=== PATIENT | female | born 1980 | race Caucasian/White ===

== ENCOUNTER 2019-05-13 13:12 | Emergency (ER) | payer BC ==
[2019-05-13] MEDS ORDERED: Ipratropium 0.5MG/2.5ML NEB* 0.5 MG/2.5 ML NEB.SOLN INH ONE ×2 (13:16→14:03)
[2019-05-13] MEDS ORDERED: Albuterol 2.5 MG/3 ML NEB.SOL* (0.083%) INH ONE ×4 (13:16→14:39)
[2019-05-13] MEDS ORDERED: predniSONE TAB* 20 MG PO ONE (13:19)
--- NOTE | 2019-05-13 14:05 | UC ---
Respiratory Complaint HPI - HPI Summary HPI Summary: The patient is a 39-year-old female with a long history of asthma. She also has an aspirin allergy as well as nasal polyposis. She has been feeling ill for the past 3 days with myalgias and today is feverish. For the past 2 weeks her sinuses have been worse than normal with increased sinus pressure and pain as well as postnasal drip. She is due to have ENT surgery to remove polyps in June of this year. About a year ago she was admitted for pneumonia and severe bronchospasm. She arrives here soon after the acute onset of chest tightness and wheezing. She had no relief with her rescue inhaler. - History of Current Complaint Chief Complaint: UCRespiratory Stated Complaint: ASTHMA ATTACK Time Seen by Provider: 05/13/19 13:16 Hx Obtained From: Patient Onset/Duration: Sudden Onset - Wheezing and increased WOB, Gradual Onset - worsening sinus pressure and pain x 2 weeks Timing: Constant Severity Initially: Mild Severity Currently: Severe Pain Intensity: 4 Pain Scale Used: 0-10 Numeric Character: Cough: Nonproductive Aggravating Factors: Nothing Alleviating Factors: Nothing Associated Signs And Symptoms: Positive: Dyspnea, Fever, Chills, Wheezing, URI, Nasal Congestion, Sinus Discomfort. Negative: Pleuritic Chest Pain, Hemoptysis , Dizziness, Calf Pain, Calf Swelling Related History: Similar Episode/Dx as: - sinusitis/asthma - Allergies/Home Medications Allergies/Adverse Reactions: Allergies Allergy/AdvReac Type Severity Reaction Status Date / Time aspirin Allergy Wheezing Verified 05/13/19 13:26 ibuprofen Allergy Wheezing Verified 05/13/19 13:26 Home Medications: Home Medications Albuterol HFA INHALER* [Ventolin HFA Inhaler*] 1 puff INH Q4H PRN 05/13/19 [ History Confirmed 05/13/19] Budesonide/Formote 160/4.5(NF) [Symbicort 160/4.5 (NF)] 1 puff INH BID 05/13/19 [History Confirmed 05/13/19] Montelukast Sodium TAB* [Singulair TAB*] 10 mg PO DAILY 05/13/19 [History Confirmed 05/13/19] Tiotropium CAP.INH (NF) [Spiriva CAP.INH*] 1 cap.inh INH DAILY 05/13/19 [ History Confirmed 05/13/19] PMH/Surg Hx/FS Hx/Imm Hx Previously Healthy: Yes Respiratory History: Asthma, Bronchitis, Pneumonia - Surgical History Surgical History: Yes Surgery Procedure, Year, and Place: ortho surgeries - Family History Known Family History: Positive: Hypertension - Social History Alcohol Use: None Substance Use Type: None Smoking Status (MU): Never Smoked Tobacco Review of Systems All Other Systems Reviewed And Are Negative: Yes Constitutional: Positive: Fever, Fatigue Skin: Positive: Negative Eyes: Positive: Negative ENT: Positive: Nasal Discharge, Sinus Congestion, Sinus Pain/Tenderness Respiratory: Positive: Shortness Of Breath, Cough Cardiovascular: Positive: Negative Gastrointestinal: Positive: Negative Genitourinary: Positive: Negative Motor: Positive: Negative Neurovascular: Positive: Negative Musculoskeletal: Positive: Negative Neurological: Positive: Negative Psychological: Positive: Negative Physical Exam Triage Information Reviewed: Yes Appearance: Ill-Appearing - increased WOB Vital Signs: Initial Vital Signs Temp 100.4 F 05/13/19 13:21 Pulse 115 05/13/19 13:21 Resp 26 05/13/19 13:21 BP 00/00 05/13/19 13:21 Pulse Ox 99 05/13/19 13:21 BP 112/58 Vital Signs Reviewed: Yes Eyes: Positive: Conjunctiva Clear ENT: Positive: Hearing grossly normal, Nasal congestion, Sinus tenderness Neck: Positive: Supple, Nontender, No Lymphadenopathy Respiratory: Positive: Respiratory distress, Accessory muscle use, Wheezing Cardiovascular: Positive: RRR, Tachycardia Musculoskeletal: Positive: ROM Intact, No Edema Neurological: Positive: Alert Psychological Exam: Normal Skin Exam: Normal Diagnostics - Radiology No standard instances Radiology Interpretation Completed By: Radiologist Summary of Radiographic Findings: NAD Re-Evaluation - Re-Evaluation First Eval Re-Evaluation Time: 14:04 Change: Improved - after second neb slight improvement, still very tight with prolonged expiration phase Second Eval Change: Improved - still wheezing better air movement Respiratory Course/Dx - Course Course Of Treatment: D/W Dr. Pennington TO ER via [place] - Differential Dx/Diagnosis Provider Diagnosis: Status asthmaticus Discharge ED - Sign-Out/Discharge Documenting (check all that apply): Patient Departure All imaging exams completed and their final reports reviewed: Yes - Discharge Plan Condition: Fair Disposition: TRANS HIGHER LV OF CARE FAC Referrals: No Primary Care Phys,NOPCP [Primary Care Provider] - - Billing Disposition and Condition Condition: FAIR Disposition: Trans Higher Lvl of Care Fac
[2019-05-13 14:18] VITALS: BP 112/58
== END 2019-05-13 14:58 | disposition short-term general hospital (02) ==
LOC: UCEAST 13:12
DX: J45.902 Unspecified asthma with status asthmaticus (principal); M79.10 Myalgia, unspecified site; J33.8 Other polyp of sinus; Z87.01 Personal history of pneumonia (recurrent); Z88.8 Allergy status to other drugs, medicaments and biological substances
CPT/HCPCS: 71046; 99204; G0463; J7512

== ENCOUNTER 2019-05-13 15:10 | Emergency (ER) | payer BC ==
--- NOTE | 2019-05-13 15:19 | ED ---
Shortness of Breath - HPI Summary HPI Summary: This patient is a 39 year old F BIBA via EMS to ED from with a chief complaint of shortness of breath since earlier today. Patient has a history of asthma and nasal polyps, for which she is supposed to have surgery this June. She thinks she is getting a sinus infection so she took Tylenol, but she states that sometimes makes her asthma worse. Patient received Duoneb x2, Albuterol x2, and Prednisone 60mg PO, which improved her breathing. Patient reports she feels jittery now from the treatments. The patient rates the pain 0/ 10 in severity. Symptoms aggravated by nothing. Symptoms alleviated by EMS tx. Patient reports cough. Patient denies fever. - History of Current Complaint Chief Complaint: EDShortnessOfBreath Hx Obtained From: Patient, EMS Onset/Duration: Gradual Onset, Lasting Days, Still Present, Worse Since Timing: Constant Current Severity: Mild Dyspnea At: Rest Aggravating Factors: Nothing Alleviating Factors: EMS Tx Associated Signs & Symptoms: Negative - Fever, Cough (Nonproductive) - Allergy/Home Medications Allergies/Adverse Reactions: Allergies Allergy/AdvReac Type Severity Reaction Status Date / Time aspirin Allergy Wheezing Verified 05/13/19 13:26 ibuprofen Allergy Wheezing Verified 05/13/19 13:26 PMH/Surg Hx/FS Hx/Imm Hx Respiratory History: Reports: Hx Asthma, Other Respiratory Problems/Disorders - Nasal polyps Sensory History: Denies: Hx Legally Blind, Hx Deafness Opthamlomology History: Denies: Hx Legally Blind EENT History: Denies: Hx Deafness - Surgical History Surgery Procedure, Year, and Place: ortho surgeries Infectious Disease History: No Infectious Disease History: Denies: Traveled Outside the [place] in Last 30 Days - Family History Known Family History: Positive: Hypertension - Social History Alcohol Use: None Hx Substance Use: No Substance Use Type: Reports: None Hx Tobacco Use: No Smoking Status (MU): Never Smoked Tobacco Review of Systems Negative: Fever Positive: Shortness Of Breath, Cough All Other Systems Reviewed And Are Negative: Yes Physical Exam - Summary Physical Exam Summary: Appearance: The patient is well-nourished in no acute distress and in no acute pain. Skin: The skin is warm and dry, and skin color reflects adequate perfusion. HEENT: The head is normocephalic and atraumatic. The pupils are equal and reactive. The conjunctivae are clear and without drainage. Nares are patent and without drainage. Mouth reveals moist mucous membranes, and the throat is without erythema and exudate. The external ears are intact. The ear canals are patent and without drainage. The tympanic membranes are intact. Neck: The neck is supple with full range of motion and non-tender. There are no carotid bruits. There is no neck vein distension. Respiratory: Expiratory wheezes. Cardiovascular: Tachycardic. Abdomen: The abdomen is soft and non-tender. There are normal bowel sounds heard in all four quadrants and there is no organomegaly palpated. Musculoskeletal: There is no back tenderness noted. Extremities are non-tender with full range of motion. There is good capillary refill. There is no peripheral edema or calf tenderness elicited. Neurological: Patient is alert and oriented to person, place and time. The patient has symmetrical motor strength in all four extremities. Cranial nerves are grossly intact. Deep tendon reflexes are symmetrical and equal in all four extremities. Psychiatric: The patient has an appropriate affect and does not exhibit any anxiety or depression. Triage Information Reviewed: Yes Vital Signs On Initial Exam: Initial Vitals Temp Pulse Resp BP Pulse Ox 99 F 121 20 130/66 100 05/13/19 15:12 05/13/19 15:12 05/13/19 15:12 05/13/19 15:12 05/13/19 15:12 Vital Signs Reviewed: Yes Procedures - Sedation Patient Received Moderate/Deep Sedation with Procedure: No Diagnostics - Vital Signs Vital Signs Temp Pulse Resp BP Pulse Ox 05/13/19 15:12 99 F 121 20 130/66 100 - Laboratory Lab Statement: Any lab studies that have been ordered have been reviewed, and results considered in the medical decision making process. Re-Evaluation - Re-Evaluation First Eval Re-Evaluation Time: 18:13 Change: Improved Comment: Patient reports feeling better. I will have the patient ambulate around the department to see if her SpO2 drops. Second Eval Re-Evaluation Time: 18:22 Comment: Patient ambulated around the department without difficulty, SpO2 did not drop below 94%. Course/Dx - Course Course Of Treatment: Ms. Ruano presented after having received intense treatment for her asthma exacerbation had I [facility]. She still had a little bit of a wheeze, was tachycardic and very shaky on arrival. She was allowed to rest for a few hours and reevaluated. She subjectively felt much improved and had only borderline tachycardia at that point. Her lungs were clear. I recommended a short steroid burst and follow-up with her asthma specialist. - Diagnoses Provider Diagnoses: Asthma exacerbation Discharge ED - Sign-Out/Discharge Documenting (check all that apply): Patient Departure - Discharge - Discharge Plan Condition: Stable Disposition: HOME Prescriptions: predniSONE [Prednisone 20 MG TAB] 20 mg PO BID #8 tablet Patient Education Materials: Asthma (ED) Referrals: Care [facility] [Outside] - 3 Days Gunjan Sanchez MD [Medical Doctor] - 3 Days Additional Instructions: Follow up with your primary care physician within 2-3 days. PLEASE RETURN TO THE ER FOR WORSENING OR CHANGING SYMPTOMS. - Billing Disposition and Condition Condition: STABLE Disposition: Home - Attestation Statements Document Initiated by Bianca: Yes Documenting Scribe: Alfred Lentz Provider For Whom Bianca is Documenting (Include Credential): Alex Seaman MD Scribe Attestation: I, Alfred Lentz, scribed for Alex Seaman MD on 05/13/19 at 2049. Scribe Documentation Reviewed: Yes Provider Attestation: The documentation as recorded by the Alfred rooney accurately reflects the service I personally performed and the decisions made by me, Alex Seaman MD Status of Scribe Document: Viewed
[2019-05-13 18:37] VITALS: BP 98/50
== END 2019-05-13 18:37 | disposition home or self-care (01) ==
LOC: ED 15:10
DX: J45.901 Unspecified asthma with (acute) exacerbation (principal); Z88.6 Allergy status to analgesic agent; Z79.899 Other long term (current) drug therapy
CPT/HCPCS: 99282

== ENCOUNTER 2019-05-17 18:41 | Emergency (ER) | payer BC ==
--- NOTE | 2019-05-17 20:14 | ED ---
Upper Extremity Pain - HPI Summary HPI Summary: 39-year-old female presents with abnormal feeling in the vein in her left arm. She had an IV placed couple days ago started feeling this tightness in her vein. Since then tightness has traveled down her arm. She states it just feels very stiff. Has full range motion arm. No rash. No fevers. No chest pain or shortness breath. She has never had this before. has history of asthma. - History of Current Complaint Chief Complaint: EDExtremityUpper Stated Complaint: IV SITE PROBLEM LT ARM PER PT Time Seen by Provider: 05/17/19 19:01 - Allergies/Home Medications Allergies/Adverse Reactions: Allergies Allergy/AdvReac Type Severity Reaction Status Date / Time aspirin Allergy Wheezing Verified 05/17/19 20:40 ibuprofen Allergy Wheezing Verified 05/17/19 20:40 PMH/Surg Hx/FS Hx/Imm Hx Endocrine/Hematology History: Denies: Hx Anticoagulant Therapy Respiratory History: Reports: Hx Asthma, Other Respiratory Problems/Disorders - Nasal polyps Sensory History: Denies: Hx Legally Blind, Hx Deafness Opthamlomology History: Denies: Hx Legally Blind - Surgical History Surgery Procedure, Year, and Place: ortho surgeries Infectious Disease History: No Infectious Disease History: Denies: Traveled Outside the [place] in Last 30 Days - Family History Known Family History: Positive: Hypertension - Social History Alcohol Use: None Hx Substance Use: No Substance Use Type: Reports: None Hx Tobacco Use: No Smoking Status (MU): Never Smoked Tobacco Review of Systems Negative: Fever Negative: Chest Pain Negative: Shortness Of Breath Positive: Other - vein pain in left arm All Other Systems Reviewed And Are Negative: Yes Physical Exam Triage Information Reviewed: Yes Vital Signs On Initial Exam: Initial Vitals Temp Pulse Resp BP Pulse Ox 97.9 F 89 16 144/92 100 05/17/19 18:52 05/17/19 18:52 05/17/19 18:52 05/17/19 18:52 05/17/19 18:52 Vital Signs Reviewed: Yes Appearance: Positive: Well-Appearing Skin: Positive: Warm, Dry Head/Face: Positive: Normal Head/Face Inspection Eyes: Positive: Normal ENT: Positive: Pharynx normal Respiratory/Lung Sounds: Positive: Clear to Auscultation, Breath Sounds Present Cardiovascular: Positive: Normal, RRR Musculoskeletal: Positive: Strength/ROM Intact - left arm, Other - vein feels inflammed on exam, good pulses Neurological: Positive: Normal Psychiatric: Positive: Normal Procedures - Sedation Patient Received Moderate/Deep Sedation with Procedure: No Diagnostics - Vital Signs Vital Signs Temp Pulse Resp BP Pulse Ox 05/17/19 18:52 97.9 F 89 16 144/92 100 - Laboratory Lab Statement: Any lab studies that have been ordered have been reviewed, and results considered in the medical decision making process. - Ultrasound No standard instances Ultrasound Interpretation Completed By: Radiologist Summary of Ultrasound Findings: IMPRESSION: 1. NEGATIVE for left upper extremity DVT. 2. This study is POSITIVE for SUPERFICIAL thrombus with Occlusive clot the left cephalic vein in the proximal and mid forearm. Course/Dx - Course Course Of Treatment: 39-year-old female presents with abnormal feeling in the vein in her left arm. She had an IV placed couple days ago started feeling this tightness in her vein. Since then tightness has traveled down her arm. She states it just feels very stiff. Has full range motion arm. No rash. No fevers. No chest pain or shortness breath. She has never had this before. has history of asthma. On exam has plebitis feeling on left arm. neurovascular intact. u/s shows superficial clot in left cephalic. patient can not take ibuprofen or aspirin. no dvt so no blood thinners needed. told apply heat. patient understand and agrees with plan. - Diagnoses Differential Diagnosis/HQI/PQRI: Positive: Other - dvt, plebitis, cellulitis Provider Diagnoses: Superficial venous thrombosis of arm Discharge ED - Sign-Out/Discharge Documenting (check all that apply): Patient Departure - Discharge Plan Condition: Good Disposition: HOME Patient Education Materials: Superficial Thrombophlebitis (ED) Referrals: Stacey Naranjo MD [Primary Care Provider] - Additional Instructions: apply heat Follow up with primary Return to ED if develop any new or worsening symptoms - Billing Disposition and Condition Condition: GOOD Disposition: Home - Attestation Statements Provider Attestation: I was available for consultation for this patient. I did not evaluate the patient or participate in any medical decision making or disposition decisions unless I am specifically named in the chart as having consulted on the patient. If I have consulted on the patient, please see my own ED note on the patient encounter. Manny Carney MD
[2019-05-17 21:16] VITALS: BP 111/75
== END 2019-05-17 21:12 | disposition home or self-care (01) ==
LOC: ED 18:41
DX: I82.612 Acute embolism and thrombosis of superficial veins of left upper extremity (principal); Z79.899 Other long term (current) drug therapy; Z88.6 Allergy status to analgesic agent
CPT/HCPCS: 99282

== ENCOUNTER 2019-06-05 15:54 | Emergency (ER) | payer BC ==
--- OUTSIDE RECORDS SUMMARY | 2019-06-05 15:58 | XMS REPORT | Continuity of Care Document ---
:1980 External Reference #:[id number] Author Name MALIK Perez Address [address] [place] [address] Care Team Providers Name Role Phone Nagi Sutton MD - Family Medicine Care Team Information Engagement Director Problems Description No Information Available Social History Type Date Description Comments Sex Unknown Tobacco Use Start: Unknown End: Former Cigarette Smoker off/ on in college Unknown ETOH Use Denies alcohol use Recreational Drug Use Denies Drug Use Tobacco Use Start: Unknown Nonsmoker Smoking Status Reviewed: 05/22/19 Nonsmoker Allergies, Adverse Reactions, Alerts Active Allergies Reaction Severity Comments Date Advil Difficulty breathing 05/22/2019 Aspirin Difficulty breathing Severe 05/22/2019 Shellfish-Derived Products 05/22/2019 Ibuprofen Difficulty breathing Severe 05/22/2019 Medications Active Medications SIG Qnty Indications Ordering Provider Date Symbicort inhale two puffs Unknown 160-4.5mcg/Act by mouth twice a Aerosol day Spiriva two puffs in the Unknown morning Montelukast Sodium Unknown Immunizations Description No Information Available Vital Signs Date Vital Result Comment 05/22/2019 4:01pm BP Systolic 100 mmHg BP Diastolic 68 mmHg Heart Rate 68 /min Body Temperature 98.1 F Respiratory Rate 16 /min Height 61 inches 5'1" Weight 106.00 lb BMI (Body Mass Index) 20.0 kg/m2 Results Test Date Facility Test Result H/L Range Note Laboratory test 05/22/2019 [facility](fma) Free T4 <pending> 0.75- 1.54 finding TSH <pending> 0.5-5.0 Vitamin D, 25 Hydroxy <pending> ng/mL 30-100 B12 <pending> 230-1050 Laboratory test finding 05/22/2019 [facility] Folic Acid (Folate) <pending> Procedures Date Code Description Status 02/23/2019 82111004 Mammogram Completed Medical Devices Description No Information Available Encounters Description No Information Available Assessments Date Code Description Provider 05/22/2019 Z00.00 Encounter for general adult medical examination MALIK Perez without abnormal findings 05/22/2019 M62.08 Separation of muscle (nontraumatic), other site MALIK Perez 05/22/2019 I82.612 Acute embolism and thrombosis of superficial MALIK Perez veins of left upper extremity 05/22/2019 J45.909 Unspecified asthma, uncomplicated MALIK Perez 05/22/2019 E55.9 Vitamin D deficiency, unspecified MALIK Perez 05/22/2019 D51.9 Vitamin B12 deficiency anemia, unspecified MALIK Perez Plan of Treatment Future Appointment(s):11/22/2019 4:10 pm - Nakita Russo M.D. at [facility]05/22/2019 - Liz Chapa, PAZ00.00 Encounter for general adult medical examination without abnormal findingsComments:Check lab work today. return in 6 months for check in or sooner if mxgdrpL18.08 Separation of muscle (nontraumatic ), other siteComments:See general surgeon for options about your diastasis. You will be receiving a phone call from their office. [facility] General YszagapM38.612 Acute embolism and thrombosis of superficial veins of left upper extremityComments:I will contact vein specialists to ask about flying with superficial blood clot. Await my phone callon SlumhaoX06.909 Unspecified asthma , uncomplicatedComments:Continue to follow with your Asthma doctor.E55.9 Vitamin D deficiency, [id number] Vitamin B12 deficiency anemia, unspecifiedAllComments:PCMHMedication Management Patient Understands medications he's taking? Yes Are there Barriers to Adherence? No Has the patient been asked about herbal supplements and therapies, and OTC meds ? Yes Care Plan1. Patient has been queried about patient's goals/ preferences and functional/lifestyle goals at relevant visits. Yes If relevant, describe: N/A2. Treatment goals as explained to the patient: above3. Are there barriers to meeting treatment goals? No If Yes, please describe:4. Self-Management goals as described to the patient: Yes As always, we strongly encourage a healthy diet and making physical activity a part of your every day life. If you have questions about how or where to start, please contact the office. Functional Status Description No Information Available Mental Status Description No Information Available Referrals Description No Information Available
[2019-06-05 16:01] VITALS: BP 111/72
--- NOTE | 2019-06-05 16:03 | UC ---
Ear Complaint HPI - HPI Summary HPI Summary: 39 y/o female presents to the urgent care c/o Left ear pain w/ decrease hearing and pressure for three days. Pt w/ Hx of nasal polyps and Asthma. Pt has been w / nasal congestion and clear nasal discharge for 6 days, but left ear pain has woren and now is 5/10 radiating to the left side of her neck. She is allergic to NSAID's since they induce her asthma, thus she just apply some OTC Daniela's ear drops this morning w/o any improvement. Pt denies fever, SOB, wheezing, dizziness, chest pain,abdominal pain, N/V/D. - History of Current Complaint Chief Complaint: UCEar Stated Complaint: EAR PAIN Time Seen by Provider: 06/05/19 16:02 Hx Obtained From: Patient Hx Last Menstrual Period: 05/14/19 Onset/Duration: Gradual Onset, Lasting Days - 3 days, Still Present, Worse Since - today Severity Initially: Mild Severity Currently: Moderate Pain Intensity: 6 Pain Scale Used: 0-10 Numeric Aggravating Factors: Other - touch ear Alleviating Factors: OTC Meds Associated Signs/Symptoms: Positive: Hearing Loss - decrease hearing, URI Symptoms - Allergies/Home Medications Allergies/Adverse Reactions: Allergies Allergy/AdvReac Type Severity Reaction Status Date / Time acetaminophen [From Tylenol] Allergy Wheezing Verified 06/05/19 16:02 aspirin Allergy Wheezing Verified 05/17/19 20:40 ibuprofen Allergy Wheezing Verified 05/17/19 20:40 Home Medications: Home Medications Rivaroxaban TAB(*) [Xarelto 15 mg(*)] 15 mg PO DAILY 06/05/19 [History Confirmed 06/05/19] PMH/Surg Hx/FS Hx/Imm Hx Previously Healthy: Yes Respiratory History: Asthma Other Respiratory History: Nasal polyps Other History Of: Negative For: Anticoagulant Therapy - Surgical History Surgical History: Yes Surgery Procedure, Year, and Place: ortho surgeries - Family History Known Family History: Positive: Hypertension - Social History Occupation: Employed Full-time Lives: With Family Alcohol Use: None Substance Use Type: None Smoking Status (MU): Never Smoked Tobacco Review of Systems All Other Systems Reviewed And Are Negative: Yes Constitutional: Positive: Negative Skin: Positive: Negative Eyes: Positive: Negative ENT: Positive: Ear Ache - left ear pain, Nasal Discharge - clear, Sinus Congestion - mild Respiratory: Positive: Negative Cardiovascular: Positive: Negative Gastrointestinal: Positive: Negative Genitourinary: Positive: Negative Motor: Positive: Negative Neurovascular: Positive: Negative Musculoskeletal: Positive: Negative Neurological: Positive: Negative Psychological: Positive: Negative Is Patient Immunocompromised?: No Physical Exam - Summary Physical Exam Summary: Vital signs: reviewed General: well developed, well nourished female sitting in the examining table w/ o any apparent distress Skin: [place], warm and dry, no evidence of atopic dermatitis, psoriasis, seborrhea. HEENT: -Head: atraumatic, non tender; no scalp dermatitis. -Eyes: sclera and conjunctiva clear, PERRLA, EOMI -Ears: no pre- or postauricular lymphadenopathy or erythema; RT external ear canal with erythema and yellowish purulent discharge, pinna tenderness on palpation, Rt TM injected w/ erythema and mild yellowish drainage, no perforation, LF external ear canal clear and LF TM WNL. TMs normal w/out bulging or retraction. Good light reflex. No fluid level, vesicles, or bullae. No perforation. -Nose/Face: erythematous and edematous nasal mucosa with clear rhinorrhea, no frontal or maxillary sinus tender to palpation. -Mouth/Throat: Mucous membrane moist, posterior pharynx clear, no erythema or exudates. Neck: supple, FROM, nontender, no lymphadenopathy, no meningismus. Chest: Clear to auscultation, normal breath sounds Abd: soft, Bowel sounds active, Nontender. Back: no spinal or CVAT Neuro: A&O x4, GCS 15, no focal neuro deficits, normal behavior for age. Triage Information Reviewed: Yes Vital Signs: Initial Vital Signs Temp 98.9 F 06/05/19 15:57 Pulse 69 06/05/19 15:57 Resp 16 06/05/19 15:57 BP 111/72 06/05/19 15:57 Pulse Ox 100 06/05/19 15:57 Ear Complaint Course/Dx - Course Course Of Treatment: 39 y/o female presents to the urgent care c/o Left ear pain w/ decrease hearing and pressure for three days. Pt w/ Hx of nasal polyps and Asthma. Pt has been w / nasal congestion and clear nasal discharge for 6 days, but left ear pain has woren and now is 5/10 radiating to the left side of her neck. She is allergic to NSAID's since they induce her asthma, thus she just apply some OTC Daniela's ear drops this morning w/o any improvement. Pt denies fever, SOB, wheezing, dizziness, chest pain,abdominal pain, N/V/D. Hx obtained. Pt w/ L otitis media and externa on examination. Pt Rx Amoxicillin PO and Cortisporin otic drops as directed below. Pt advised . if symptoms do not improve or worsen to f/u with her PCP or ENT for further management. Pt understood and agreed with plan of care - Differential Dx/Diagnosis Differential Diagnosis/HQI/PQRI: Cerumen Impaction, Otitis Externa, Otitis Media , Perforated TM, URI Provider Diagnosis: Left otitis media with effusion, Left otitis externa Discharge ED - Sign-Out/Discharge Documenting (check all that apply): Patient Departure - D/C home All imaging exams completed and their final reports reviewed: No Studies - Discharge Plan Condition: Stable Disposition: HOME Prescriptions: Amoxicillin PO (*) [Amoxicillin 875 MG (*)] 875 mg PO BID #20 tab Neomyc/Polym/HC 1% OTIC SUSP* [Cortisporin Otic Susp 1%*] 4 drop LEFT EAR TID # 1 btl Patient Education Materials: Ear Infection (ED) Referrals: Liz Chapa PA [Primary Care Provider] - 3 Days Additional Instructions: 1- Please take the full course of the antibiotic to avoid resistance.Take yogurts w/ probiotics or Culturelle to protect your GI system 2-Please Apply Cortisporin otic drops as directed to alleviate symptoms. 3-If symptoms do not improve or worsen please f/u with your PCP or ENT for further evaluation and treatment. - Billing Disposition and Condition Condition: STABLE Disposition: Home - Attestation Statements Provider Attestation: This patient was not seen by me I was available for consult chart reviewed
== END 2019-06-05 16:32 | disposition home or self-care (01) ==
LOC: UCEAST 15:54
DX: H65.92 Unspecified nonsuppurative otitis media, left ear (principal); H60.92 Unspecified otitis externa, left ear; Z79.01 Long term (current) use of anticoagulants; Z88.6 Allergy status to analgesic agent
CPT/HCPCS: 99212; G0463